=== PATIENT | female | born 1960 | race Caucasian/White ===

== ENCOUNTER 2017-10-20 04:43 | Emergency (ER) | payer MEDICARE ==
[~2017-10-20] VITALS: Ht 154.9 cm; Wt 124.3 kg
[~2017-10-20 04:43] MED LIST: CRESTOR10 MG; LANTUS100 UNITS/; METFORMIN HCL1000 MG PO; NEURONTIN800 MG; NEXIUM40 MG; NOVOLOG100 UNITS1; SOMA; XANAX2 MG
[2017-10-20 04:52] LABS: BASOPHILS # (AUTO) 0.1 (0.0-0.1); BASOPHILS % 0.7 % (0.0-1.0); EOSINOPHILS # (AUTO) 0.2 (0.0-0.4); HEMATOCRIT 34.7 % (34.2-44.1); HEMOGLOBIN 11.6 g/dL (12.0-16.0); LYMPHOCYTES # (AUTO) 1.9 (1.0-3.2); LYMPHOCYTES % 21.3 % (18.0-39.1); MEAN CORPUSCULAR HEMOGLOBIN 30.5 pg (28-32); MEAN CORPUSCULAR HGB CONC 33.4 g/dL (31-35); MEAN CORPUSCULAR VOLUME 91.3 fL (81-99); MONOCYTES # (AUTO) 0.9 (0.2-0.8); MONOCYTES % 10.5 % (4.4-11.3); NEUTROPHILS # (AUTO) 5.8 (2.1-6.9); NEUTROPHILS % 65.2 % (38.7-80.0); PLATELET COUNT 237 x10e3/uL (140-360); RED CELL DISTRIBUTION WIDTH 13.8 % (11.7-14.4)
[2017-10-20] MEDS ORDERED: ATORVASTATIN CA40 MG PO (05:01)
[2017-10-20] MEDS ORDERED: FENOFIBRATE160 MG PO (05:01)
[2017-10-20] MEDS ORDERED: NEXIUM40 MG PO (05:01)
[2017-10-20] MEDS ORDERED: ALPRAZOLAM1 MG PO (05:01)
[2017-10-20] MEDS ORDERED: NITROGLYCERIN0.4 MG SL (05:01)
[2017-10-20] MEDS ORDERED: FLUTICASONE PRO16 GM (05:01)
[2017-10-20] MEDS ORDERED: LEVEMIR100 UNIT/1 (05:01)
[2017-10-20] MEDS ORDERED: NOVOLOG MI100 UNIT/1 (05:01)
[2017-10-20] MEDS ORDERED: SERTRALINE HCL100 MG PO (05:01)
[2017-10-20] MEDS ORDERED: NYSTATIN15 GM TOP (05:01)
[2017-10-20] MEDS ORDERED: GABAPENTIN300 MG PO (05:01)
[2017-10-20] MEDS ORDERED: CYCLOBENZAPRINE10 MG PO (05:01)
[2017-10-20] MEDS ORDERED: AMLODIPINE BESY10 MG PO (05:01)
[2017-10-20 05:07] LABS: ALBUMIN 4.4 g/dL (3.5-5.0); ALBUMIN/GLOBULIN RATIO 1.5 (0.8-2.0); ANION GAP 17.1 mmol/L (8-16); CALCIUM 9.7 mg/dL (8.4-10.2); CREATININE, SERUM 1.3 mg/dL (0.57-1.11); POTASSIUM 4.1 mmol/L (3.5-5.1)
== END 2017-10-20 05:30 | disposition home or self-care (01) ==
LOC: ER 04:43
DX: M54.6 Pain in thoracic spine (principal); M54.5 Low back pain; G89.29 Other chronic pain; I10 Essential (primary) hypertension; E11.9 Type 2 diabetes mellitus without complications
CPT/HCPCS: 36415; 80053; 85025; 99283